=== PATIENT | female | born 1990 | race Caucasian/White ===

== ENCOUNTER 2016-08-20 04:38 | Emergency (ER) | payer SELFPAY ==
[~2016-08-20] VITALS: Ht 165.1 cm; Wt 122.7 kg
[~2016-08-20 04:38] MED LIST: AMOXICILLIN 50500 MG PO; AMOXICILLIN 8751 TAB PO; ATIVAN 0.50.5 MG/TAB PO; AVIANE 0.02 MG-1 TAB PO; BIRTH CONTROL PILLS; CELEXA10 MG PO; CLEOCIN HCL300 MG PO; DEPO-PROVER400 MG/ML IM; DESYREL 50MG50 MG PO; EFFEXOR 75M75 MG/TAB PO; FLEXERIL 1010 MG/TAB PO; KLONOPIN 0.5MG0.5 MG PO; MULTIPLE VITAMI1 CAP PO; NEXPLANON68 MG ID; NORCO 325 MG-51 TAB PO; PROMETHAZINE12.5 M5 PO; RESTORIL 77.5 MG/CAP PO; SEROQUEL 1100 MG/TAB PO; XANAX 0.5MG0.5 MG PO
[2016-08-20 04:40] VITALS: BP 146/90; TEMP 97.8
[2016-08-20] MEDS ORDERED: EFFEXOR XR75 MG/CAP PO (04:42)
[2016-08-20 05:10] LABS: BASO % 0.3 % (0.0-2.0); EOS # 0.1 (0.0-0.7); EOS % 1.2 % (0-4.0); GRAN # 6.8 (1.4-6.5); GRAN % 68.7 % (42.2-75.2); HEMATOCRIT 41.8 % (37.0-47.0); HEMOGLOBIN 14.4 g/dl (12.5-16.0); LYMPH # 2.2 (1.2-3.4); LYMPH % 21.6 % (20.0-51.0); MEAN CELL VOLUME 92 fl (80.0-100.0); MEAN CORPUSCULAR HEMOGLOBIN 32 pg (27.0-31.0); MEAN CORPUSCULAR HGB CONC 34 g/dl (33.0-37.0); MEAN PLATELET VOLUME 11.2 fl (7.4-10.4); MONO # 0.8 (0.1-0.6); MONO % 7.9 % (1.7-9.3); PLATELET COUNT 273 K/mm3 (130-400); RED BLOOD COUNT 4.57 M/mm3 (4.10-5.30); REDCELL DISTRIBUTION WIDTH-CV 12.7 % (11.5-14.5)
[2016-08-20 05:22] LABS: ADJUSTED CALCIUM 9.3 mg/dL (8.4-10.2); ALANINE AMINOTRANSFERASE 33 U/L (9-52); ALKALINE PHOSPHATASE 97 U/L (50-136); ANION GAP 11 mmol/L (7-16); BILIRUBIN,TOTAL 0.8 mg/dL (0.0-1.0); BLOOD UREA NITROGEN 17 mg/dL (7-17); CALCIUM 9.3 mg/dL (8.4-10.2); CARBON DIOXIDE 24 mmol/L (22-30); CHLORIDE 105 mmol/L (98-107); CREATININE, serum 0.67 mg/dL (0.52-1.25); GLUCOSE 106 mg/dL (74-106); SODIUM 141 mmol/L (137-145); TOTAL PROTEIN 7.5 gm/dL (6.4-8.2)
[2016-08-20 05:30] LABS: ACETAMINOPHEN < 10 ug/mL (10-30); SALICYLATE < 1.0 mg/dL
[2016-08-20 05:36] LABS: AMPHETAMINE URINE NEGATIVE; BARBITURATES URINE NEGATIVE; BENZODIAZEPINES URINE NEGATIVE; BUPRENORPHINE URINE NEGATIVE; METHADONE URINE NEGATIVE; OPIATES URINE NEGATIVE; OXYCODONE URINE NEGATIVE; PHENCYCLIDINE URINE NEGATIVE; PROPOXYPHENE URINE NEGATIVE; THC CANNABINOIDS URINE NEGATIVE
[2016-08-20 07:51] VITALS: PULSE 58
== END 2016-08-20 07:51 | disposition home or self-care (01) ==
LOC: COL.ER 04:38
PROVIDERS: Emergency Medicine
DX: F32.9 Major depressive disorder, single episode, unspecified (principal); F43.10 Post-traumatic stress disorder, unspecified; R45.851 Suicidal ideations

== ENCOUNTER 2016-11-24 17:30 | Emergency (ER) | payer SELFPAY ==
[~2016-11-24] VITALS: Ht 167.6 cm; Wt 113.6 kg
[~2016-11-24 17:30] MED LIST changes: +EFFEXOR XR75 MG/CAP PO
[2016-11-24 17:33] VITALS: BP 159/85; PULSE 72; TEMP 98.2
[2016-11-24] MEDS ORDERED: PROZAC40 MG PO (17:35)
[2016-11-24] MEDS ORDERED: NORCO 325 MG-51 TAB PO (18:14)
[2016-11-24] MEDS ORDERED: AMOXICILLIN 50500 MG PO (18:14)
== END 2016-11-24 18:27 | disposition home or self-care (01) ==
LOC: COL.ER 17:30
DX: K03.81 Cracked tooth (principal)

== ENCOUNTER 2017-01-03 16:47 | Emergency (ER) | payer SELFPAY ==
[~2017-01-03] VITALS: Ht 165.1 cm; Wt 113.6 kg
[~2017-01-03 16:47] MED LIST changes: +PROZAC40 MG PO
[2017-01-03 16:55] VITALS: BP 136/84; PULSE 60; TEMP 98
[2017-01-03] MEDS ORDERED: AMOXICILLIN 50500 MG PO (17:32)
== END 2017-01-03 17:43 | disposition home or self-care (01) ==
LOC: COL.ER 16:47
DX: K08.89 Other specified disorders of teeth and supporting structures (principal); F32.9 Major depressive disorder, single episode, unspecified; F41.9 Anxiety disorder, unspecified; F43.10 Post-traumatic stress disorder, unspecified; F17.210 Nicotine dependence, cigarettes, uncomplicated

== ENCOUNTER 2017-02-14 02:01 | Emergency (ER) | payer SELFPAY ==
[~2017-02-14] VITALS: Ht 165.1 cm; Wt 125.0 kg
[2017-02-14 02:04] VITALS: BP 117/76; TEMP 98.1
[2017-02-14] MEDS ORDERED: REXULTI2 MG PO (02:04)
[2017-02-14] MEDS ORDERED: AMOXICILLIN 50500 MG PO (02:09)
[2017-02-14] MEDS ORDERED: AMOXICILLIN 25250 MG PO (02:10)
[2017-02-14] MEDS ORDERED: PEN-VEE K500 MG PO (02:29)
== END 2017-02-14 03:00 | disposition home or self-care (01) ==
LOC: COL.ER 02:01
DX: K02.9 Dental caries, unspecified (principal); F32.9 Major depressive disorder, single episode, unspecified; F41.9 Anxiety disorder, unspecified; F43.10 Post-traumatic stress disorder, unspecified; Z87.891 Personal history of nicotine dependence

== ENCOUNTER 2017-03-30 01:21 | Emergency (ER) | payer MEDICAID ==
[~2017-03-30] VITALS: Ht 165.1 cm; Wt 129.5 kg
[~2017-03-30 01:21] MED LIST changes: +AMOXICILLIN 25250 MG PO; +PEN-VEE K500 MG PO; +REXULTI2 MG PO
[2017-03-30 01:24] VITALS: TEMP 98
[2017-03-30] MEDS ORDERED: NORCO 325 MG-51 TAB PO (02:45)
[2017-03-30] MEDS ORDERED: AMOXICILLIN 50500 MG PO (02:45)
[2017-03-30 02:54] VITALS: BP 132/70; PULSE 84
== END 2017-03-30 02:56 | disposition home or self-care (01) ==
LOC: COL.ER 01:21
DX: K08.89 Other specified disorders of teeth and supporting structures (principal); K03.81 Cracked tooth; J06.9 Acute upper respiratory infection, unspecified; F32.9 Major depressive disorder, single episode, unspecified; F41.9 Anxiety disorder, unspecified; F43.10 Post-traumatic stress disorder, unspecified

== ENCOUNTER 2017-04-03 04:55 | Emergency (ER) | payer MEDICAID ==
[~2017-04-03] VITALS: Ht 165.1 cm; Wt 128.2 kg
[~2017-04-03 04:55] MED LIST changes: -MACROBID 1100 MG/CAP PO; -PRENATAL PO; -TYLENOL #21 TAB PO
[2017-04-03 04:57] VITALS: BP 120/84; TEMP 97.8
[2017-04-03 05:55] LABS: PH 6 (5-8); URINE APPEARANCE Clear; URINE BACTERIA Many /hpf; URINE BILIRUBIN Negative (NEGATIVE); URINE BLOOD Negative (NEGATIVE); URINE COLOR Amber; URINE GLUCOSE Negative (NEGATIVE); URINE KETONE Negative (NEGATIVE); URINE RBC 0-2 /hpf; URINE UROBILINOGEN Negative (NEGATIVE); URINE WBC 0-2 /hpf
[2017-04-03] MEDS ORDERED: MACROBID 1100 MG/CAP PO (06:02)
[2017-04-03 06:16] VITALS: PULSE 73
[2017-04-03 07:48] LABS: CHLAMYDIA/TRACH by PCR Female NOT DETECTED; NEISSERIA GON by PCR Female NOT DETECTED
== END 2017-04-03 06:17 | disposition home or self-care (01) ==
LOC: COL.ER 04:55
PROVIDERS: Emergency Medicine
DX: O23.91 Unspecified genitourinary tract infection in pregnancy, first trimester (principal); R82.71 Bacteriuria; Z3A.00 Weeks of gestation of pregnancy not specified

== ENCOUNTER → 2017-04-03 | Outpatient (CLI) | payer MEDICAID ==
[~2017-04-03] MED LIST changes: +MACROBID 1100 MG/CAP PO; +PRENATAL PO; +TYLENOL #21 TAB PO
[2017-04-03 16:58] LABS: HEMATOCRIT 41.3 % (37.0-47.0); HEMOGLOBIN 14.4 g/dl (12.5-16.0); MEAN CELL VOLUME 91 fl (80.0-100.0); MEAN CORPUSCULAR HEMOGLOBIN 32 pg (27.0-31.0); MEAN CORPUSCULAR HGB CONC 35 g/dl (33.0-37.0); MEAN PLATELET VOLUME 10.5 fl (7.4-10.4); PLATELET COUNT 261 K/mm3 (130-400); RED BLOOD COUNT 4.52 M/mm3 (4.10-5.30); WHITE BLOOD COUNT 11.5 K/mm3 (4.8-10.8)
== END ==
LOC: COL.LAB 15:56
PROVIDERS: Emergency Medicine
DX: Z01.89 Encounter for other specified special examinations (principal)

== ENCOUNTER → 2017-04-03 | Outpatient (CLI) | payer MEDICAID | LOC: COL.RAD 12:00 | DX: N83.202 Unspecified ovarian cyst, left side (principal) ==

== ENCOUNTER 2017-04-05 07:36 | Emergency (ER) | payer MEDICAID ==
[~2017-04-05] VITALS: Ht 165.1 cm; Wt 131.8 kg
[~2017-04-05 07:36] MED LIST changes: +MACROBID 1100 MG/CAP PO
[2017-04-05 07:40] VITALS: TEMP 97.9
[2017-04-05 09:11] VITALS: BP 133/80; PULSE 88
== END 2017-04-05 09:12 | disposition home or self-care (01) ==
LOC: COL.ER 07:36
DX: O26.899 Other specified pregnancy related conditions, unspecified trimester (principal); R10.2 Pelvic and perineal pain; R10.9 Unspecified abdominal pain; O99.340 Other mental disorders complicating pregnancy, unspecified trimester; F32.9 Major depressive disorder, single episode, unspecified; F41.9 Anxiety disorder, unspecified; F43.10 Post-traumatic stress disorder, unspecified; Z87.891 Personal history of nicotine dependence

== ENCOUNTER 2017-04-21 20:32 | Emergency (ER) | payer MEDICAID ==
[~2017-04-21] VITALS: Ht 165.1 cm; Wt 131.8 kg
[2017-04-21 20:35] VITALS: BP 131/71; TEMP 98.2
[2017-04-21] MEDS ORDERED: PRENATAL PO (21:04)
[2017-04-21 21:10] LABS: BASO % 0.2 % (0.0-2.0); EOS # 0.2 (0.0-0.7); EOS % 1.8 % (0-4.0); GRAN # 8.1 (1.4-6.5); GRAN % 73.4 % (42.2-75.2); HEMATOCRIT 40.4 % (37.0-47.0); LYMPH # 1.8 (1.2-3.4); LYMPH % 16.4 % (20.0-51.0); MEAN CELL VOLUME 92 fl (80.0-100.0); MEAN CORPUSCULAR HEMOGLOBIN 32 pg (27.0-31.0); MEAN CORPUSCULAR HGB CONC 35 g/dl (33.0-37.0); MEAN PLATELET VOLUME 11.1 fl (7.4-10.4); MONO # 0.8 (0.1-0.6); MONO % 7.7 % (1.7-9.3); PLATELET COUNT 247 K/mm3 (130-400); RED BLOOD COUNT 4.37 M/mm3 (4.10-5.30); REDCELL DISTRIBUTION WIDTH-CV 13.1 % (11.5-14.5)
[2017-04-21 22:01] VITALS: PULSE 68
== END 2017-04-21 22:02 | disposition home or self-care (01) ==
LOC: COL.ER 20:32
PROVIDERS: Physician Assistant
DX: O46.91 Antepartum hemorrhage, unspecified, first trimester (principal); O99.341 Other mental disorders complicating pregnancy, first trimester; F32.9 Major depressive disorder, single episode, unspecified; F41.9 Anxiety disorder, unspecified; Z87.891 Personal history of nicotine dependence; Z98.818 Other dental procedure status; Z3A.01 Less than 8 weeks gestation of pregnancy

== ENCOUNTER 2017-05-07 09:25 | Emergency (ER) | payer MEDICAID ==
[~2017-05-07] VITALS: Ht 165.1 cm; Wt 136.4 kg
[~2017-05-07 09:25] MED LIST changes: +PRENATAL PO
[2017-05-07 09:45] VITALS: BP 158/69; PULSE 56; TEMP 98.4
[2017-05-07] MEDS ORDERED: TYLENOL #21 TAB PO (09:51)
[2017-05-07] MEDS ORDERED: AMOXICILLIN 50500 MG PO (10:19)
== END 2017-05-07 10:30 | disposition home or self-care (01) ==
LOC: COL.ER 09:25
DX: O99.612 Diseases of the digestive system complicating pregnancy, second trimester (principal); K02.9 Dental caries, unspecified; O99.342 Other mental disorders complicating pregnancy, second trimester; F32.9 Major depressive disorder, single episode, unspecified; O99.212 Obesity complicating pregnancy, second trimester; E66.9 Obesity, unspecified; Z68.43 Body mass index [BMI] 50.0-59.9, adult; Z3A.00 Weeks of gestation of pregnancy not specified

== ENCOUNTER 2017-07-24 11:41 | Emergency (ER) | payer MEDICAID ==
[~2017-07-24] VITALS: Ht 165.1 cm; Wt 144.5 kg
[~2017-07-24 11:41] MED LIST changes: +TYLENOL #21 TAB PO
[2017-07-24 11:58] VITALS: BP 147/86; PULSE 87; TEMP 97.7
[2017-07-24] MEDS ORDERED: PEN-VEE K500 MG PO (12:46)
[2017-07-24] MEDS ORDERED: NORCO 325 MG-51 TAB PO (12:46)
== END 2017-07-24 13:05 | disposition home or self-care (01) ==
LOC: COL.ER 11:41
DX: O99.89 Other specified diseases and conditions complicating pregnancy, childbirth and the puerperium (principal); K02.9 Dental caries, unspecified; K04.7 Periapical abscess without sinus; Z3A.20 20 weeks gestation of pregnancy

== ENCOUNTER 2017-09-24 14:54 | Outpatient (CLI) | payer MEDICAID ==
[~2017-09-24] VITALS: Ht 165.1 cm; Wt 147.3 kg
[2017-09-24 15:18] VITALS: BP 136/72; PULSE 102; TEMP 98.4
[2017-09-24 16:00] LABS: COLLECTION METHOD CLEAN CATCH
[2017-09-24 16:15] VITALS: BP 139/75; PULSE 92
[2017-09-24 16:39] LABS: MUCOUS Present /lpf; PH 5 (5-8); URINE APPEARANCE Cloudy; URINE BACTERIA Rare /hpf; URINE BILIRUBIN Negative (NEGATIVE); URINE BLOOD Negative (NEGATIVE); URINE COLOR Amber; URINE GLUCOSE Negative (NEGATIVE); URINE KETONE Trace (NEGATIVE); URINE LEUKOCYTE ESTERASE Negative (NEGATIVE); URINE NITRATE Negative (NEGATIVE); URINE PROTEIN(semi-quant) 1+ (NEGATIVE); URINE RBC 0-2 /hpf
[2017-09-24 16:47] VITALS: PULSE 78
== END 2017-09-24 16:49 | disposition home or self-care (01) ==
LOC: LDRO 14:54
PROVIDERS: Obstetrics & Gynecology
DX: O99.89 Other specified diseases and conditions complicating pregnancy, childbirth and the puerperium (principal); M54.5 Low back pain; Z3A.29 29 weeks gestation of pregnancy

== ENCOUNTER 2017-11-04 08:21 | Outpatient (CLI) | payer MEDICAID ==
[~2017-11-04] VITALS: Ht 165.1 cm; Wt 152.3 kg
[2017-11-04 08:50] VITALS: BP 131/63; PULSE 83; TEMP 98.3
[2017-11-04] MEDS ORDERED: PROZAC 20MG20 MG PO (09:23)
== END 2017-11-04 09:40 | disposition home or self-care (01) ==
LOC: LDRO 08:21
DX: O26.893 Other specified pregnancy related conditions, third trimester (principal); Z3A.35 35 weeks gestation of pregnancy

== ENCOUNTER 2017-12-04 02:50 | Outpatient (CLI) | payer MEDICAID ==
[~2017-12-04] VITALS: Ht 165.1 cm; Wt 152.7 kg
[~2017-12-04 02:50] MED LIST changes: +PROZAC 20MG20 MG PO
[2017-12-04 03:07] VITALS: BP 136/78; PULSE 100; TEMP 97.9
[2017-12-04 03:40] VITALS: BP 133/68; PULSE 83
== END 2017-12-04 03:50 | disposition home or self-care (01) ==
LOC: LDRO 02:50
DX: O36.8130 Decreased fetal movements, third trimester, not applicable or unspecified (principal); Z3A.39 39 weeks gestation of pregnancy

== ENCOUNTER 2017-12-13 07:43 | Inpatient (IN) | payer MEDICAID ==
[2017-12-13] VITALS (47 sets, daily range): BP systolic 96–151; BP diastolic 52–89; PULSE 68–110; TEMP 97.6–98.9
[~2017-12-13] VITALS: Ht 165.1 cm; Wt 153.6 kg
[2017-12-13 11:44] LABS: BASO % 0.1 % (0.0-2.0); EOS # 0.1 (0.0-0.7); EOS % 0.4 % (0-4.0); GRAN # 11.2 (1.4-6.5); GRAN % 82.7 % (42.2-75.2); LYMPH # 1.5 (1.2-3.4); MEAN CELL VOLUME 86 fl (80.0-100.0); MEAN CORPUSCULAR HGB CONC 34 g/dl (33.0-37.0); MEAN PLATELET VOLUME 12.1 fl (7.4-10.4); MONO # 0.7 (0.1-0.6); MONO % 5.3 % (1.7-9.3); PLATELET COUNT 248 K/mm3 (130-400); RED BLOOD COUNT 4.04 M/mm3 (4.10-5.30); REDCELL DISTRIBUTION WIDTH-CV 13.9 % (11.5-14.5)
[2017-12-13 11:47] LABS: HEMATOCRIT 34.7 % (37.0-47.0); HEMOGLOBIN 11.7 g/dl (12.5-16.0); MEAN CORPUSCULAR HEMOGLOBIN 29 pg (27.0-31.0)
[2017-12-14] VITALS (24 sets, daily range): BP systolic 101–167; BP diastolic 47–95; PULSE 81–105; TEMP 97.9–98.5
[2017-12-15 00:50] VITALS: BP 125/71; PULSE 93; TEMP 97.7
[2017-12-15 07:29] LABS: HEMATOCRIT 27.4 % (37.0-47.0); HEMOGLOBIN 9.3 g/dl (12.5-16.0)
[2017-12-15 08:20] VITALS: BP 122/67; PULSE 90; TEMP 97.6
[2017-12-15 18:00] VITALS: BP 142/75; PULSE 104; TEMP 97.8
[2017-12-15 19:45] VITALS: BP 128/79; PULSE 96; TEMP 98.3
[2017-12-16 06:45] VITALS: BP 116/70; PULSE 87; TEMP 97.8
[2017-12-16] MEDS ORDERED: PERCOCET 325 MG1 TA2 PO (08:48)
[2017-12-16] MEDS ORDERED: IBU600 MG PO (08:48)
[2017-12-16 11:51] VITALS: BP 124/68; PULSE 70; TEMP 98.1
== END 2017-12-16 11:55 | disposition home or self-care (01) | DRG 765 ==
LOC: LDRO 07:43 → LDR 07:55 → LDRO 11:12 → LDR 11:13 → OB 11:13
PROVIDERS: Obstetrics & Gynecology
PROC: 10D00Z1 Extraction of Products of Conception, Low, Open Approach (ICD-10-PCS; principal; 2017-12-14)
DX: O64.8XX0 Obstructed labor due to other malposition and malpresentation, not applicable or unspecified (principal); Z68.43 Body mass index [BMI] 50.0-59.9, adult; D62 Acute posthemorrhagic anemia; Z3A.41 41 weeks gestation of pregnancy; Z37.0 Single live birth; O99.214 Obesity complicating childbirth; E66.01 Morbid (severe) obesity due to excess calories; O99.344 Other mental disorders complicating childbirth; F41.8 Other specified anxiety disorders; O90.81 Anemia of the puerperium
CPT/HCPCS: J0690; J1885; J2250; J2270; J2370; J2400; J2405; J2590; J2795; J3010; J7120

== ENCOUNTER 2017-12-18 21:08 | Emergency (ER) | payer MEDICAID ==
[~2017-12-18] VITALS: Ht 165.1 cm; Wt 150.3 kg
[~2017-12-18 21:08] MED LIST changes: +IBU600 MG PO; +PERCOCET 325 MG1 TA2 PO
[2017-12-18 21:13] VITALS: TEMP 99.2
[2017-12-18] MEDS ORDERED: IRON TABLETS325 MG PO (21:30)
[2017-12-18 21:55] LABS: BASO % 0.1 % (0.0-2.0); EOS # 0.3 (0.0-0.7); EOS % 4.2 % (0-4.0); GRAN # 4.4 (1.4-6.5); GRAN % 63.4 % (42.2-75.2); LYMPH # 1.6 (1.2-3.4); LYMPH % 23.7 % (20.0-51.0); MEAN CELL VOLUME 87 fl (80.0-100.0); MEAN CORPUSCULAR HGB CONC 33 g/dl (33.0-37.0); MEAN PLATELET VOLUME 11.1 fl (7.4-10.4); MONO # 0.5 (0.1-0.6); MONO % 7.7 % (1.7-9.3); PLATELET COUNT 292 K/mm3 (130-400); RED BLOOD COUNT 3.02 M/mm3 (4.10-5.30); REDCELL DISTRIBUTION WIDTH-CV 14.4 % (11.5-14.5)
[2017-12-18 21:56] LABS: HEMATOCRIT 26.3 % (37.0-47.0); HEMOGLOBIN 8.6 g/dl (12.5-16.0); MEAN CORPUSCULAR HEMOGLOBIN 28 pg (27.0-31.0)
[2017-12-18 22:00] LABS: COLLECTION METHOD CATHETER
[2017-12-18 22:05] LABS: MUCOUS Present /lpf; PH 5 (5-8); SQUAMOUS EPITHELIAL None Seen /hpf; URINE APPEARANCE Clear; URINE BACTERIA None Seen /hpf; URINE BILIRUBIN Negative (NEGATIVE); URINE BLOOD Negative (NEGATIVE); URINE COLOR Yellow; URINE GLUCOSE Negative (NEGATIVE); URINE KETONE Negative (NEGATIVE); URINE LEUKOCYTE ESTERASE Negative (NEGATIVE); URINE NITRATE Negative (NEGATIVE); URINE PROTEIN(semi-quant) Negative (NEGATIVE); URINE RBC 0-2 /hpf; URINE UROBILINOGEN Negative (NEGATIVE)
[2017-12-18 22:09] LABS: ALBUMIN 2.9 gm/dL (3.5-5.0); BILIRUBIN,TOTAL 0.3 mg/dL (0.0-1.0); C-REACTIVE PROTEIN 3.7 mg/dL (0.0-0.9); CALCIUM 8.4 mg/dL (8.4-10.2); CREATININE, serum 0.63 mg/dL (0.52-1.25); POTASSIUM 3.8 mmol/L (3.4-5.0); TOTAL PROTEIN 6.1 gm/dL (6.4-8.2)
[2017-12-18] MEDS ORDERED: CEPHALEXIN500 M1 PO (23:34)
[2017-12-19 00:10] VITALS: BP 143/100; PULSE 71
== END 2017-12-19 00:13 | disposition home or self-care (01) ==
LOC: COL.ER 21:08
PROVIDERS: Emergency Medicine
DX: O90.81 Anemia of the puerperium (principal); O85 Puerperal sepsis; Z98.890 Other specified postprocedural states
CPT/HCPCS: J2405; J7030; Q9967

== ENCOUNTER 2018-02-23 00:27 | Emergency (ER) | payer MEDICAID ==
[~2018-02-23] VITALS: Ht 165.1 cm; Wt 136.4 kg
[~2018-02-23 00:27] MED LIST changes: +CEPHALEXIN500 M1 PO; +IRON TABLETS325 MG PO
[2018-02-23 00:31] VITALS: TEMP 98.1
[2018-02-23 01:33] LABS: BASO % 0.3 % (0.0-2.0); EOS # 0.2 (0.0-0.7); EOS % 3.3 % (0-4.0); GRAN # 4.9 (1.4-6.5); GRAN % 69.6 % (42.2-75.2); HEMATOCRIT 39.8 % (37.0-47.0); HEMOGLOBIN 13.2 g/dl (12.5-16.0); LYMPH # 1.3 (1.2-3.4); LYMPH % 18.5 % (20.0-51.0); MEAN CELL VOLUME 86 fl (80.0-100.0); MEAN CORPUSCULAR HEMOGLOBIN 29 pg (27.0-31.0); MEAN CORPUSCULAR HGB CONC 33 g/dl (33.0-37.0); MEAN PLATELET VOLUME 10.9 fl (7.4-10.4); MONO # 0.6 (0.1-0.6); PLATELET COUNT 303 K/mm3 (130-400); RED BLOOD COUNT 4.63 M/mm3 (4.10-5.30); REDCELL DISTRIBUTION WIDTH-CV 13.7 % (11.5-14.5)
[2018-02-23 01:45] LABS: COLLECTION METHOD CLEAN CATCH
[2018-02-23 01:46] LABS: ALBUMIN 3.8 gm/dL (3.5-5.0); BILIRUBIN,TOTAL 0.2 mg/dL (0.0-1.0); C-REACTIVE PROTEIN 1.1 mg/dL (0.0-0.9); CALCIUM 9.1 mg/dL (8.4-10.2); CREATININE, serum 0.66 mg/dL (0.52-1.25); POTASSIUM 4.3 mmol/L (3.4-5.0); TOTAL PROTEIN 7.1 gm/dL (6.4-8.2)
[2018-02-23 01:50] LABS: PH 5 (5-8); URINE APPEARANCE Hazy; URINE BACTERIA Rare /hpf; URINE BILIRUBIN Negative (NEGATIVE); URINE BLOOD 1+ (NEGATIVE); URINE COLOR Yellow; URINE GLUCOSE Negative (NEGATIVE); URINE KETONE Negative (NEGATIVE); URINE LEUKOCYTE ESTERASE 3+ (NEGATIVE); URINE NITRATE Negative (NEGATIVE); URINE PROTEIN(semi-quant) Negative (NEGATIVE); URINE UROBILINOGEN Negative (NEGATIVE)
[2018-02-23] MEDS ORDERED: CEFTIN 250250 MG/TAB PO (02:04)
[2018-02-23 02:35] VITALS: BP 97/82; PULSE 68
== END 2018-02-23 02:35 | disposition home or self-care (01) ==
LOC: COL.ER 00:27
PROVIDERS: Nurse Practitioner
DX: N39.0 Urinary tract infection, site not specified (principal); K62.5 Hemorrhage of anus and rectum; F32.9 Major depressive disorder, single episode, unspecified; F41.9 Anxiety disorder, unspecified; Z87.891 Personal history of nicotine dependence; Z98.890 Other specified postprocedural states
CPT/HCPCS: J3010; J7030

== ENCOUNTER 2018-06-03 02:04 | Emergency (ER) | payer MEDICAID ==
[~2018-06-03] VITALS: Ht 165.1 cm; Wt 132.4 kg
[~2018-06-03 02:04] MED LIST changes: +CEFTIN 250250 MG/TAB PO
[2018-06-03 02:07] VITALS: BP 126/81; TEMP 97.9
[2018-06-03 02:33] LABS: COLLECTION METHOD CLEAN CATCH
[2018-06-03 02:36] LABS: BASO % 0.3 % (0.0-2.0); EOS # 0.3 (0.0-0.7); EOS % 2.6 % (0-4.0); GRAN # 7.8 (1.4-6.5); GRAN % 70.2 % (42.2-75.2); HEMATOCRIT 40.6 % (37.0-47.0); HEMOGLOBIN 13.7 g/dl (12.5-16.0); LYMPH # 2.1 (1.2-3.4); MEAN CELL VOLUME 87 fl (80.0-100.0); MEAN CORPUSCULAR HEMOGLOBIN 29 pg (27.0-31.0); MEAN CORPUSCULAR HGB CONC 34 g/dl (33.0-37.0); MONO # 0.8 (0.1-0.6); MONO % 7.5 % (1.7-9.3); PLATELET COUNT 308 K/mm3 (130-400); RED BLOOD COUNT 4.66 M/mm3 (4.10-5.30); REDCELL DISTRIBUTION WIDTH-CV 13.4 % (11.5-14.5)
[2018-06-03 02:49] LABS: MUCOUS Present /lpf; PH 6 (5-8); SQUAMOUS EPITHELIAL None Seen /hpf; URINE APPEARANCE Clear; URINE BACTERIA Rare /hpf; URINE BILIRUBIN Negative (NEGATIVE); URINE BLOOD Negative (NEGATIVE); URINE COLOR Yellow; URINE GLUCOSE Negative (NEGATIVE); URINE KETONE Negative (NEGATIVE); URINE LEUKOCYTE ESTERASE Negative (NEGATIVE); URINE NITRATE Negative (NEGATIVE); URINE PROTEIN(semi-quant) Negative (NEGATIVE); URINE RBC 0-2 /hpf; URINE UROBILINOGEN Negative (NEGATIVE)
[2018-06-03 02:52] LABS: ALBUMIN 3.9 gm/dL (3.5-5.0); BILIRUBIN,TOTAL 0.2 mg/dL (0.0-1.0); C-REACTIVE PROTEIN 1.4 mg/dL (0.0-0.9); CREATININE, serum 0.63 mg/dL (0.52-1.25); POTASSIUM 4.3 mmol/L (3.4-5.0); TOTAL PROTEIN 7.5 gm/dL (6.4-8.2)
[2018-06-03] MEDS ORDERED: FLEXERIL 1010 MG/TAB PO (04:03)
[2018-06-03 04:12] VITALS: PULSE 67
== END 2018-06-03 04:15 | disposition home or self-care (01) ==
LOC: COL.ER 02:04
PROVIDERS: Nurse Practitioner
DX: M54.5 Low back pain (principal); F32.9 Major depressive disorder, single episode, unspecified; F41.9 Anxiety disorder, unspecified; F17.210 Nicotine dependence, cigarettes, uncomplicated; Z98.890 Other specified postprocedural states; R10.9 Unspecified abdominal pain
CPT/HCPCS: J1885; J7030